=== PATIENT | male | born 1960 | race Caucasian/White ===

== ENCOUNTER 2018-05-26 23:24 | Emergency (ER) | payer OTHER ==
[2018-05-27] MEDS ORDERED: KETOROLAC 30 MG/ML INJ ONE (00:01)
[2018-05-27] MEDS ORDERED: ALBUTEROL 2.5 MG/3 ML NEB SOL ONE (00:40)
[2018-05-27] MEDS ORDERED: IPRATROPIUM BROM 0.5MG/2.5ML ONE (00:41)
--- NOTE | 2018-05-27 01:30 | ER ---
Nurse's Notes [facility] Name: Aki Verduzco Age: 57 yrs Sex: Male : 1960 Arrival Date: 05/26/2018 Time: 23:25 Bed 3 Private MD: Diagnosis: Multiple fractures of ribs, left side Presentation: 05/26 23:33 Presenting complaint: Patient states: he was in the shower washing his hair the floor bb was really slippery and he fell hitting his left side on the rim of the bathtub thinks his ribs may be broken and spouse thinks he may have punctured his lung. Care prior to arrival: None. Mechanism of Injury: Fall from standing position. Trauma event details: Injury occurred in the [facility], Injury occurred: at home. Injury occurred: May 26, 2018. 23:33 Acuity: PRIYANK 3 bb 23:33 Method Of Arrival: Ambulatory bb 23:36 Transition of care: patient was not received from another setting of care. Onset of bb symptoms was May 26, 2018. Risk Assessment: Do you want to hurt yourself or someone else? Patient reports no desire to harm self or others. Initial Sepsis Screen: Does the patient meet any 2 criteria? No. Patient's initial sepsis screen is negative. Does the patient have a suspected source of infection? No. Patient's initial sepsis screen is negative. Historical: - Allergies: 23:37 No Known Allergies; bb - Home Meds: 23:46 lisinopril-hydrochlorothiazide 20-12.5 mg oral tab 2 tab once daily [Active]; lp1 - PMHx: 23:37 Hypertension; bb - PSHx: 23:37 R knee; bb - Immunization history: Last tetanus immunization: unknown. - Social history:: Smoking status: Patient uses tobacco products, smokes 1.5 packs per day, Patient uses alcohol, claims drinking about a 6 pack/day. Patient/guardian denies using street drugs. - Ebola Screening: : No symptoms or risks identified at this time. Screenin:33 Abuse screen: Denies threats or abuse. Tuberculosis screening: No symptoms or risk bb factors identified. 23:40 Nutritional screening: No deficits noted. bb 23:46 Fall Risk None identified. lp1 Assessment: 23:37 General: Appears uncomfortable, Behavior is appropriate for age, Smells of alcohol. lp1 Pain: Complains of pain in left lateral anterior chest and left lateral posterior chest Pain currently is 8 out of 10 on a pain scale. Quality of pain is described as sharp. Neuro: Level of Consciousness is awake, alert, obeys commands, Oriented to person, place, situation, Gait is steady, Pupils are PERRLA. EENT: Sclera/Cornea left and right eyes reddened sclera. Cardiovascular: Patient's skin is warm and dry. Respiratory: Reports shortness of breath at rest pain with respiration Airway is patent Respiratory effort is even, Respiratory pattern is regular, Breath sounds are coarse Breath sounds with wheezes. GI: Abdomen is non-distended. : No signs and/or symptoms were reported regarding the genitourinary system. Derm: Skin is pink, warm \T\ dry. Musculoskeletal: Circulation, motion, and sensation intact. 05/27 00:57 Reassessment: Patient appears in no apparent distress at this time. Patient and/or ao family updated on plan of care and expected duration. Pain level reassessed. Patient is alert, oriented x 3, equal unlabored respirations, skin warm/dry/pink. Patient currently getting a breathing treatment. See MAR for administration. Vital Signs: 05/26 23:33 BP 145 / 87; Pulse 63; Resp 20 S; Temp 97.8(O); Pulse Ox 95% on R/A; Weight 99.79 kg bb (R); Height 6 ft. 0 in. (182.88 cm) (R); Pain 3/10; 05/27 00:57 BP 135 / 89; Pulse 74; Resp 12; Pulse Ox 100% on Nebulizer Mask; Pain 0/10; ao 01:40 BP 138 / 87; Pulse 76; Resp 16; Pulse Ox 98% on R/A; Pain 0/10; ao 05/26 23:33 Body Mass Index 29.84 (99.79 kg, 182.88 cm) bb [place] Coma Score: 05/26 23:33 Eye Response: spontaneous(4). Verbal Response: oriented(5). Motor Response: obeys bb commands(6). Total: 15. Trauma Score (Adult): 23:33 Eye Response: spontaneous(1); Verbal Response: oriented(1); Motor Response: obeys bb commands(2); Systolic BP: > 89 mm Hg(4); Respiratory Rate: 10 to 29 per min(4); Wanda Score: 15; Trauma Score: 12 ED Course: 23:25 Patient arrived in ED. es 23:33 Krystal Oconnell, RN is Primary Nurse. bb 23:33 Patient has correct armband on for positive identification. Placed in gown. Bed in low bb position. Call light in reach. Side rails up X2. Adult w/ patient. 23:33 Patient maintains SpO2 saturation greater than 95% on room air. bb 23:35 Triage completed. bb 23:37 Arm band placed on Patient placed in an exam room, on a stretcher, on compliance monitor, bb on pulse oximetry. 23:38 Rene Guzman MD is Attending Physician. tw4 23:40 Thermoregulation: warm blanket given to patient. bb 23:48 Inserted saline lock: 20 gauge in left antecubital area, using aseptic technique. cc1 05/27 00:17 CT Chest Wo Con In Process Unspecified. EDMS 00:25 CT completed. Patient tolerated procedure well. Patient moved to CT via stretcher. Patient moved back from CT. 01:39 No provider procedures requiring assistance completed. IV discontinued, intact, ao bleeding controlled, No redness/swelling at site. Pressure dressing applied. Administered Medications: 05/26 23:59 Drug: TORadol 30 mg Route: IVP; Site: left antecubital; lp1 05/27 01:00 Follow up: Response: No adverse reaction; Pain is decreased ao 00:38 Drug: Albuterol - atroVENT (3:1) (2.5 mg - 0.5 mg) 3 ml Route: Nebulizer; ao 01:41 Follow up: Response: No adverse reaction; Other; Pt able to breath without difficulties ao Intake: 05/26 23:33 PO: 0ml; Total: 0ml. bb Outcome: 05/27 01:30 Discharge ordered by . tw4 01:40 Discharged to home ambulatory. ao 01:40 Condition: stable 01:40 Discharge instructions given to patient, significant other, Instructed on discharge instructions, follow up and referral plans. Demonstrated understanding of instructions, follow-up care, medications, Prescriptions given X 2. 01:41 Patient left the ED. ao Signatures: Dispatcher [employer] EDTN Jagdeep, Freya es [place] Enrique Brenda, RN RN bb Deanna Rubi RN RN lp1 Jim Alvarez cc1 Brandon Wang RN RN ao Rene Guzman MD MD tw4
--- NOTE | 2018-05-27 01:30 | EDPHYS ---
Physician Documentation [facility] Name: Aki Verduzco Age: 57 yrs Sex: Male : 1960 Arrival Date: 05/26/2018 Time: 23:25 Bed 3 Private MD: ED Physician Rene Guzman HPI: 05/27 01:39 This 57 yrs old Male presents to ER via Ambulatory with complaints of Fall tw4 Injury. 01:39 Details of fall: The patient fell from an upright position, while standing. Onset: The tw4 symptoms/episode began/occurred today. Associated injuries: The patient sustained injury to the chest, specifically the left lateral posterior chest, contusion, pain with breathing. Severity of symptoms: At their worst the symptoms were moderate, in the emergency department the symptoms are unchanged. The patient has not experienced similar symptoms in the past. Historical: - Allergies: 05/26 23:37 No Known Allergies; bb - Home Meds: 23:46 lisinopril-hydrochlorothiazide 20-12.5 mg oral tab 2 tab once daily [Active]; lp1 - PMHx: 23:37 Hypertension; bb - PSHx: 23:37 R knee; bb - Immunization history: Last tetanus immunization: unknown. - Social history:: Smoking status: Patient uses tobacco products, smokes 1.5 packs per day, Patient uses alcohol, claims drinking about a 6 pack/day. Patient/guardian denies using street drugs. - Ebola Screening: : No symptoms or risks identified at this time. ROS: 05/27 01:39 Constitutional: Negative for fever, chills, and weight loss, Cardiovascular: Negative tw4 for chest pain, palpitations, and edema, Respiratory: Negative for shortness of breath, cough, wheezing, and pleuritic chest pain, Abdomen/GI: Negative for abdominal pain, nausea, vomiting, diarrhea, and constipation, MS/Extremity: Negative for injury and deformity. Back: Positive for injury or acute deformity, pain at rest, pain with movement. Exam: 01:39 Constitutional: This is a well developed, well nourished patient who is awake, alert, tw4 and in no acute distress. Head/Face: Normocephalic, atraumatic. Chest/axilla: Normal chest wall appearance and motion. Nontender with no deformity. No lesions are appreciated. Cardiovascular: Regular rate and rhythm with a normal S1 and S2. No gallops, murmurs, or rubs. Normal PMI, no JVD. No pulse deficits. 01:39 Respiratory: the patient does not display signs of respiratory distress, Respirations: normal, Breath sounds: wheezin:39 Back: pain, that is moderate, ROM is painful, with all movement, normal spinal alignment noted. Vital Signs: 05/26 23:33 BP 145 / 87; Pulse 63; Resp 20 S; Temp 97.8(O); Pulse Ox 95% on R/A; Weight 99.79 kg bb (R); Height 6 ft. 0 in. (182.88 cm) (R); Pain 3/10; 05/27 00:57 BP 135 / 89; Pulse 74; Resp 12; Pulse Ox 100% on Nebulizer Mask; Pain 0/10; ao 01:40 BP 138 / 87; Pulse 76; Resp 16; Pulse Ox 98% on R/A; Pain 0/10; ao 05/26 23:33 Body Mass Index 29.84 (99.79 kg, 182.88 cm) bb [place] Coma Score: 05/26 23:33 Eye Response: spontaneous(4). Verbal Response: oriented(5). Motor Response: obeys bb commands(6). Total: 15. Trauma Score (Adult): 23:33 Eye Response: spontaneous(1); Verbal Response: oriented(1); Motor Response: obeys bb commands(2); Systolic BP: > 89 mm Hg(4); Respiratory Rate: 10 to 29 per min(4); Wanda Score: 15; Trauma Score: 12 MDM: 23:39 Patient medically screened. tw4 05/27 01:39 Differential diagnosis: contusion. Data reviewed: vital signs, nurses notes. Data tw4 interpreted: Pulse oximetry: Interpretation: normal. Counseling: I had a detailed discussion with the patient and/or guardian regarding: the historical points, exam findings, and any diagnostic results supporting the discharge/admit diagnosis. Medication response: Toradol relieved patient's pain. The symptoms have resolved. Response to treatment: and as a result, I will discharge patient. Special discussion: I discussed with the patient/guardian in detail that at this point there is no indication for admission to the hospital. It is understood, however, that if the symptoms persist or worsen the patient needs to return immediately for re-evaluation. 05/26 23:39 Order name: CT Chest Wo Con tw4 Administered Medications: 05/26 23:59 Drug: TORadol 30 mg Route: IVP; Site: left antecubital; lp1 05/27 01:00 Follow up: Response: No adverse reaction; Pain is decreased ao 00:38 Drug: Albuterol - atroVENT (3:1) (2.5 mg - 0.5 mg) 3 ml Route: Nebulizer; ao 01:41 Follow up: Response: No adverse reaction; Other; Pt able to breath without difficulties ao Disposition: 05/27/18 01:30 Discharged to Home. Impression: Multiple fractures of ribs, left side. - Condition is Stable. - Discharge Instructions: Rib Fracture, [id number]. - Prescriptions for Ibuprofen 800 mg Oral Tablet - take 1 tablet by ORAL route every 12 hours As needed take with food; 20 tablet. Tylenol- Codeine #3 300-30 mg Oral Tablet - take 2 tablet by ORAL route every 6 hours As needed; 6 tablet. - Work release form, Medication Reconciliation Form, Thank You Letter, Antibiotic Education, Prescription Opioid Use form. - Follow up: Private Physician; When: Upon discharge from the Emergency Department; Reason: Wound Recheck, Recheck today's complaints, Re-evaluation by your physician. - Problem is new. - Symptoms have improved. Signatures: Dispatcher [employer] EDMS Krystal Oconnell RN RN bb Deanna Rubi RN RN lp1 Brandon Wang RN RN ao Wadley, Terrence, MD MD tw4 Corrections: (The following items were deleted from the chart) 01:41 01:30 05/27/2018 01:30 Discharged to Home. Impression: Multiple fractures of ribs, left ao side. Condition is Stable. Forms are Medication Reconciliation Form, Thank You Letter, Antibiotic Education, Prescription Opioid Use. Follow up: Private Physician; When: Upon discharge from the Emergency Department; Reason: Wound Recheck, Recheck today's complaints, Re-evaluation by your physician. Problem is new. Symptoms have improved. tw4
--- NOTE | 2018-05-27 08:35 | RAD REPORT ---
EXAM DESCRIPTION: CT - Thorax Wo Con CLINICAL HISTORY: Chest pain SMASH INJURY COMPARISON: No comparisons FINDINGS: The lungs are clear. No pleural thickening or pleural effusion. No pneumothorax. No axillary, mediastinal or hilar adenopathy. Left posterior ninth, tenth and eleventh rib fractures are noted without significant displacement. No gross upper abdominal finding. All CT scans are performed using dose optimization technique as appropriate and may include automated exposure control or mA/KV adjustment according to patient size. IMPRESSION: Left posterior rib fractures.
== END 2018-05-27 01:41 | disposition home or self-care (01) ==
LOC: ER 23:24
DX: S22.42XA Multiple fractures of ribs, left side, initial encounter for closed fracture (principal); W19.XXXA Unspecified fall, initial encounter; Y93.89 Activity, other specified; Y92.9 Unspecified place or not applicable; I10 Essential (primary) hypertension; F17.210 Nicotine dependence, cigarettes, uncomplicated
CPT/HCPCS: 71250; 94640; 96374; 99285